=== PATIENT | male | born 1995 | race Native Hawaiian/Other Pacific Islander ===

== ENCOUNTER 2021-08-16 03:04 | Emergency (ER) | payer OTHER ==
[~2021-08-16] VITALS: Ht 172.7 cm; Wt 77.1 kg
--- NOTE | 2021-08-16 03:12 | NUR ---
PT AMBULATED TO ER WITH C/O AVULSION ON LT INDEX FINGER AFTER CUTTING PIZZA AT HOME.
[2021-08-16 04:15] VITALS: BP 136/77
--- NOTE | 2021-08-16 04:15 | NUR ---
Patient discharged to home in stable condition. Written and verbal after care instructions given. Patient verbalizes understanding of instructions. Stressed follow up or return to ER for worsening s/s. Denies any pain/discomfort upon discharge.
== END 2021-08-16 04:16 | disposition home or self-care (01) ==
LOC: ER 03:11
DX: S61.211A Laceration without foreign body of left index finger without damage to nail, initial encounter (principal); W26.0XXA Contact with knife, initial encounter; Y93.G9 Activity, other involving cooking and grilling; Y92.89 Other specified places as the place of occurrence of the external cause
CPT/HCPCS: A4663